=== PATIENT | male | born 1965 | race Caucasian/White ===

== ENCOUNTER 2024-10-31 21:48 | Inpatient (IN) | payer BC ==
[~2024-10-31] VITALS: Ht 172.7 cm; Wt 77.0 kg
[2024-11-01] MEDS ORDERED: TEST75PE9 (00:21)
--- NOTE | 2024-11-01 01:31 | Physician Documentation ---
History of Present Illness ~ Chief Complaint: Wound Stated Complaint: XFER/ARM WOUND Time Seen by MD: 01:18 OK to notify your PCP?: Yes Source: patient Mode of Arrival: EMS Exam Limitations: no limitations HPI BED 14 This patient is a 59 y/o male transferred from [facility] for left arm swelling and infection. 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 He states that while preparing this skull, he soaked it in water, getting his forearm wet in the process. He states that since then he has noticed increasing pain to his left forearm, and yesterday he noticed what he thought looked like a pimple. Patient now complaining of worsening erythema, pain, and swelling. Patient otherwise healthy, stating he takes testosterone, but no other medications. Denies any fevers. Patient underwent I&D at [facility] prior to arrival. No pus was expressed. Wound culture was collected. Patient denies any other associated symptoms at this time. Patient denies any alleviating or exacerbating factors. Tetanus within 5 years: Yes Medication Reconciliation Allergies: Coded Allergies: No Known Allergies (Unverified , 10/31/24) Miscellaneous Medications Testosterone (Testopel), (Reported) Past Medical History Past Medical History: No Pertinent History Past Surgical History: no surgical history, noncontributory Smoking Status: Never smoker Alcohol Use: None Drug Use: none Review of Systems All Other Systems at this time: Reviewed and Negative ROS As stated in the HPI above, otherwise all other systems have been reviewed and negative. Integumentary: Reports: see HPI, wound(s) Physical Exam Vital Signs: RN Vital Signs have been reviewed: Yes, Temperature: 98.5, Heart Rate: 80, Respiratory Rate: 18, BP: 118/87, Pulse Oximetry: 99, Weight: 77.000 Physical Exam General: The patient is well developed, well nourished, nontoxic appearing and is in no acute distress. Skin: Left upper extremity: Patient with approximately 3x4cm violaceous area on volar aspect of the left forearm with subcentimeter opening, draining pink material. Approximately 6cm of underlying fluctuance; no axillary lymphadenopathy. Rest of skin: [place], warm and dry with no rashes. HEENT: Head was normocephalic and atraumatic. Eyes - pupils equal, round, reactive to light and accommodation. Extraocular movements were intact. Conjunctivae were nonicteric. The mouth and oropharynx were clear with moist mucous membranes. There were no pharyngeal exudates or erythema. Neck: Supple and nontender. There was no jugular venous distention, lymph adenopathy, thyromegaly or masses. Chest: Clear to auscultation bilaterally without wheezes, rales or rhonchi. No accessory muscle use. No dullness to percussion. Heart: Rate regular and rhythmic. S1, S2. No murmurs. Palpation of the chest wall was normal. No rubs or thrills. Abdomen: Soft, nontender and nondistended. Positive bowel sounds. No guarding or rebound. No hepatosplenomegaly or palpable masses. Extremities: No cyanosis, clubbing or edema. The patient moves all extremities. Pulses were equal and symmetric. Neurologic: Motor and sensation grossly intact. A & O x4. Psychologic: The patient was oriented to person, place and time. Progress Progress Note 0142: Case discussed with hospitalist who agrees to evaluate patient for admission. Results/Orders Reviewed/noted all lab results: Yes Results/Orders Orders - ROMMEL ENG MD Electrocardiogram (11/01/24 01:20) Culture Blood (11/01/24 01:20) Chest,Single View (11/01/24 01:51) Completed Orders - ROMMEL ENG MD Electrocardiogram (11/01/24 01:20) Cbc/Diff (11/01/24 01:20) MG (11/01/24 01:20) Chest,Single View (11/01/24 01:51) Procalcitonin (11/01/24 01:20) Vancomycin/Ns 1 Gm Add-[place] (Vancomyc (11/01/24 01:20) BMP (11/01/24 01:20) Lacticsepsis (11/01/24 01:20) C-Reactive Protein (11/01/24 01:31) ESR (11/01/24 01:31) Clindamycin 300mg/D5w 50ml (Clindamycin (11/01/24 02:00) Ua W/Microscopic, Cult If Ind (10/31/24 22:08) Hgb A1c (11/01/24 01:30) Medications Received in ER Medications (Trade) Dose Ordered Sig/Kami Route PRN Reason Start Time Stop Time Status Last Admin Dose Admin Vancomycin HCl 250 ml @ 166 mls/hr ONCE ONCE IV 11/01/24 01:20 11/01/24 02:50 DC 11/01/24 02:03 166 MLS/HR Sodium Chloride 1,000 ml @ 100 mls/hr Q10H IV 11/01/24 02:35 11/01/24 03:06 100 MLS/HR Vital Signs 10/31/24 10/31/24 10/31/24 10/31/24 21:59 22:00 23:07 23:30 Temp 98.5 Pulse 66 80 Resp 12 16 16 18 B/P (MAP) 125/90 118/87 (97) Pulse Ox 99 99 11/01/24 01:05 Temp 98.6 Pulse 78 Resp 16 B/P (MAP) 118/82 (94) Pulse Ox 99 Laboratory Tests Test 10/31/24 22:08 11/01/24 01:30 11/01/24 01:39 Urine Specimen Description Non-specified Urine Color Yellow Urine Clarity Clear Urine pH 5.0 Urine Specific [place] 1.010 Urine Protein Negative Urine Glucose (UA) Negative Urine Ketones Negative Urine Occult Blood Trace-intact Urine Nitrite Negative Urine Bilirubin Negative Urine Urobilinogen 0.2 Urine Leukocyte Esterase Negative Urine RBC 0-2 Urine WBC 0-4 Urine Squamous Epithelial Cells Few Urine Bacteria None seen Urine Culture Indicated Not ind Volume Urine Centrifuged 10 ml Urine Comment White Blood Count 10.8 Red Blood Count 4.98 Hemoglobin 15.1 Hematocrit 43.3 Mean Corpuscular Volume 86.9 Mean Corpuscular Hemoglobin 30.3 Mean Corpuscular Hemoglobin Concent 34.9 Red Cell Distribution Width 12.5 Platelet Count 163 Mean Platelet Volume 7.8 Neutrophils (%) (Auto) 83.7 H Lymphocytes (%) (Auto) 8.9 L Monocytes (%) (Auto) 6.7 Eosinophils (%) (Auto) 0.4 Basophils (%) (Auto) 0.3 Neutrophils # (Auto) 9.1 H Lymphocytes # (Auto) 1.0 L Monocytes # (Auto) 0.7 Eosinophils # (Auto) 0.0 Basophils # (Auto) 0.0 CBC Comment Erythrocyte Sedimentation Rate 2 Sodium Level 138 Potassium Level 3.4 L Chloride Level 103 Carbon Dioxide Level 24.6 Anion Gap 10 Blood Urea Nitrogen 12 Creatinine 1.09 Estimated GFR/1.73 m2 69 BUN/Creatinine Ratio 11.0 Glucose Level 147 H Hemoglobin A1c 5.1 Lactic Acid Level 2.0 Calcium Level 7.9 L Magnesium Level 2.0 C-Reactive Protein 3.27 H Albumin 3.1 L Procalcitonin < 0.05 Chemistry Comments Prothrombin Time 10.7 INR International Normalized Ratio 1.0 Activated Partial Thromboplast Time 27 Coagulation Comments Microbiology Date/Time Source Procedure Growth Status 11/01/24 01:39 Blood Hand Right Blood Culture - Preliminary NEGATIVE (LESS THAN 24 HOURS) Resulted Re-Evaluation Re-Evaluation : Re-Evaluation: Improved Progress Patient was seen and examined. Patient is given reassurance. Patient laboratory work was obtained. Urinalysis was within normal limits. Chemistry showed some potassium at 3.4 procalcitonin negative lactic acid 2.0 otherwise negative glucose slightly elevated at 14.7 CBC also within normal limits but slight left shift of 83% sed rate is two. Patient received clindamycin Zosyn and vanco prior to arrival. There was concern for necrotizing fasciitis since the patient had very aggressive infection. Possible as cyanotic organisms were considered. There was no fever. CT scan was obtained there was no gas seen. Patient arrives patient's infection has dramatically decreased. Originally it was almost the entire forearm now decreased to just 10 cm area. Laboratory work above was reassuring. Additional antibiotics was given. Consultation with the infections Disease will be ordered tomorrow. Presented the case with the hospitalist and additional fluids were given. Continuous conveyor monitor interpretation shows normal sinus rhythm heart rate 70s, no ectopy, normal, my Interpretation. Pulse oximetry monitor interpretation shows normal oxygenation 99% room air, nor mal, my interpretation. EKG/XRAY/CT/US/VASC/MRI EKG : Additional Comment 0133: EDMD Dr. Eng interpreted the EKG to show normal sinus rhythm at a rate of 78bpm, good R wave progression, no significant ST changes. QTc of 416. Chest X-Ray : Interpreted By: both Additional Comments [facility] [address], [place], [place] - [address] DIAGNOSTIC RADIOLOGY Patient: SAÚL LANGE Medical Record: [id number] [facility] 1965, Age: 59 Sex: Male Location: ER Patient Status: [facility] ER Service Date/Time: 11/01/24150 Ordering Physician: ROMMEL ENG MD Exam: CHEST,SINGLE VIEW CHEST RADIOGRAPH Indication: SEPSIS Technique: Single frontal view of the chest was obtained COMPARISON: None FINDINGS: Lines and Tubes: None Lungs: Clear Pleura: No effusion. No pneumothorax. Cardiomediastinal contours: Unremarkable Bones: Unremarkable IMPRESSION: 1. No acute disease. Electronically Signed by:AUSTIN WU MD Date & Time: 11/01/24207 Dictated by: AUSTIN WU MD Dictation date and time: 11/01/24147 Primary Care Provider: NO PRIMARY CARE PROVIDER cc: ROMMEL ENG MD ~ EDMD Dr. Eng reviewed imaging and agrees with above findings. Medical Decision Making Additional info obtained from: old records General Diff Dx:Considerations: Include: Abrasion, Contusion, Other Departure Time of Disposition: 01:42 Disposition: 09 ADMITTED INPATIENT Admitted to Inpatient Unit: yes, to hospitalist Admission Level of Care: Med/Surg with Tele Impression: Primary Impression: Cellulitis of left forearm Additional Impression: rule out necrotizing fasciitis Condition: Guarded Referrals: NO PRIMARY CARE PROVIDER (PCP) Education Educated: Patient Educated regarding: diagnosis, need for follow up Critical Care Note Total Time (mins): 30 Critical Care Note The very real possibility of a deterioration of this patient's condition required the highest level of my preparedness for sudden, emergent intervention. I provided critical care services, which included medication orders, frequent reevaluations of the patient's condition and response to treatment, ordering and reviewing test results, and discussing the case with various consultants. Excludes time spent performing separately billable procedures. The critical care time associated with the care of the patient was 30 minutes. Signature Scribe Signature: Scribed for Rommel Eng MD by Sarah Toth 11/01/24 01:45 Attestation: The note accurately reflects work and decisions made by me.Rommel Eng MD 11/01/24 01:31 ROMMEL ENG MD Nov 01, 2024 01:31
[2024-11-01 01:47] LABS: MEAN PLATELET VOLUME 7.8 FL (7.4-10.4); RED CELL DISTRIBUTION WIDTH 12.5 % (11.5-14.5)
[2024-11-01] MEDS ORDERED: clindamycin 300mg/D5W 50mL 50 ML IV SCH (02:00)
[2024-11-01 02:02] LABS: CREATININE 1.09 MG/DL (0.60-1.10); TOTAL CARBON DIOXIDE 24.6 MMOL/L (24-32); eCRCL 71 ML/MIN; eGFR 69 ML/MIN
[2024-11-01 02:02] LABS: LEUKOCYTE ESTERASE ,URINE NEGATIVE (Neg); NITRITES, URINE NEGATIVE (Neg); OCCULT BLOOD,URINE TRACE-INTACT (Neg)
[2024-11-01] MEDS: vancomycin/NS 1 GM ADD-VANTAGE 250 ML IV ONE (02:03)
[2024-11-01 02:04] LABS: UA COLLECTION TYPE NON-SPECIFIED
--- NOTE | 2024-11-01 02:10 | RADIOLOGY REPORT ---
CHEST RADIOGRAPH Indication: SEPSIS Technique: Single frontal view of the chest was obtained COMPARISON: None FINDINGS: Lines and Tubes: None Lungs: Clear Pleura: No effusion. No pneumothorax. Cardiomediastinal contours: Unremarkable Bones: Unremarkable IMPRESSION: 1. No acute disease.
[2024-11-01 02:12] LABS: SQUAMOUS EPITHELIAL CELL,UR FEW /LPF (FEW)
[2024-11-01] MEDS ORDERED: magnesium Cl slow-release 64mg tablet PO PRN (02:35)
[2024-11-01] MEDS ORDERED: magnesium hydroxide 30ml (MOM) UD suspension PO PRN (02:35)
[2024-11-01] MEDS ORDERED: ondansetron/PF 4mg/2ml inj IV PRN (02:35)
[2024-11-01] MEDS ORDERED: potassium Cl 40MEQ/1/2NS 520ml 520 ML IV PRN (02:35)
[2024-11-01] MEDS ORDERED: mag hydrox/Alum hydrox/simeth 30ml oral suspension PO PRN (02:35)
[2024-11-01] MEDS ORDERED: potassium Cl 20 mEq SR tablet PO PRN ×2 (02:35)
[2024-11-01] MEDS ORDERED: magnesium sulf-water 2g/50mL 50 ML IV PRN (02:35)
[2024-11-01] MEDS ORDERED: magnesium sulf-water 4G/100mL 100 ML IV PRN (02:35)
[2024-11-01 02:54] LABS: APTT 27 SECONDS (22-32); INR 1.0 INR
[2024-11-01] MEDS: normal saline 1000ml 1,000 ML IV SCH (03:06)
--- NOTE | 2024-11-01 03:49 | HISTORY AND PHYSICAL-Residence ---
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 The patient stated that he had a laceration on his left forearm which was then soaked by water/blood and other chemical while he was working on cleaning the skull of a long horn bull approximately five days ago. He states that 1st noticed severe pain, swelling and pimple like spot on the left forearm which then progressed rapidly in to tightness of his entire forearm with a increased swelling and warmth in 24 hours. He went to the ER at [facility] where they initially tried incision and drainage but were not successful and there was no pus expressed. He was treated with IV vancomycin, clindamycin and Zosyn and reports that the pain, swelling warmth and redness improved significantly in the past 12 hours prior to his transferred to our hospital. The patient denied any fever, chills, headaches, confusion, nausea or vomiting. He denied any recent weight loss, weight gain, abdominal pain, chest pain, shortness of breaths. He denied any similar kind of wounds in the past. PCP- [facility], Dr. Partida. Code status-full code Allergies: Coded Allergies: No Known Allergies (Unverified , 10/31/24) Home Medications Home Medications Active Reported Testopel (Testosterone) 75 Mg Pellet.ea. 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 Lives at home. Alcohol Use: None Drug Use: None ROS All Other Systems: Reviewed and Negative ROS As stated above in the HPI, otherwise all systems are reviewed and negative. Integumentary: Reports: see HPI, wound(s) Exam Vitals: Vital Signs Date Time Temp Pulse Resp B/P (MAP) Pulse Ox O2 Delivery O2 Flow Rate FiO2 11/01/24 01:05 98.6 78 16 118/82 (94) 99 General: General: Awake and Alert, no acute distress. HEENT: Conjunctiva pink, Sclera clear, Mucus Membranes moist. Neck: Supple without masses and tenderness. Resp: Unlabored. Lungs clear to auscultation bilaterally. Heart: Regular Rate and rhythm, normal S1 and S2 without murmur, rub or gallop. Abdomen: Soft and non tender no organomegaly Extremities: Left forearm has a 2*2 cm wound in the last several aspect which has a increased warmth and redness surrounding it when compared to the right forearm. Skin: Warm and Dry. Neurology: Cranial nerves 2-12 intact. No focal motor or sensory deficits. Diagnostic Data Last Recorded Lab Results: 11/01/2412911/01/24129 Diagnostic Data: Laboratory Tests Test 11/01/24 01:39 Prothrombin Time 10.7 SECONDS (9.0-12.0) INR International Normalized Ratio 1.0 INR Activated Partial Thromboplast Time 27 SECONDS (22-32) Coagulation Comments Advance Care Planning Advanced Care planning: Add on additional 30 min Additional Plan Left forearm cellulitis The patient's WBC count at the outside hospital was 13, has a trended down to 10.8 here. Procalcitonin negative. ESR within normal limits. C-reactive protein elevated-3.27. Started the patient on IV vancomycin and Zosyn. Follow up with the blood cultures. Wound care consultation. The patient had wound cultures done at [facility]. Request results. CT scan of the left upper extremity was done at [facility]. Images were reviewed. Request a CT report from the outside hospital. Consider Infectious Disease consultation in view of the patient's occupation as a taxidermist and exposure to rare pathogens. Follow up with the A1c, lipid panel. Hypokalemia, mild Replace potassium as per the protocol. Continue to monitor electrolytes closely. History of Erectile dysfunction Patient is on testosterone at home. Restart once med reconciliation is done. CODE STATUS: Full code DVT prophylaxis: Heparin subQ 5000 units b.i.d. GI prophylaxis: None Diet: Regular Disposition: Continue medical management. Consider Infectious Disease consultation in the a.m.. Bob Swenson MD Internal Medicine Resident, PGY-3 Date of Service: Nov 01, 2024 Billing Provider: EVGENY BLUM MD,BOB CALDERON, RES Nov 01, 2024 03:49
--- NOTE | 2024-11-01 05:15 | ELECTROCARDIOGRAPH REPORT ---
[facility] Test Date: 2024-11-01 Test Time: 01:33:48 Pat Name: SAÚL IZQUIERDOT Department: EMERGENCY ROOM Patient ID: [id number] Room: ED 14 1 Gender: M Duplicate Maker: MAIN : 1965 Requested By: BEVERLEY HENRIQUEZ Order Number: [id number] Reading MD: Dr. Beverley Henriquez Measurements Intervals [place] Rate: 78 P: 73 NE: 151 QRS: -46 QRSD: 96 T: 70 QT: 365 QTc: 416 Interpretive Statements Sinus rhythm Probable left atrial enlargement LAD, consider left anterior fascicular block Baseline wander in lead(s) II,III,aVL,aVF,V3,V5,V6 Electronically Signed On 11-01-2024 5:40:[address] Beverley Henriquez Please click the below link to view image of tracing.
[2024-11-01] MEDS: piperacillin/tazo 4.5gm/100ml 100 ML IV SCH (07:50)
[2024-11-01] MEDS: K and/or MAG REPLACEMENT MC SCH (08:00)
[2024-11-01] MEDS: docusate sod 100mg capsule PO SCH (08:00)
--- NOTE | 2024-11-01 08:26 | PROGRESS NOTE ---
Clinical Note Clinical Note Progress Note: 59 years old has been admitted earlier this morning for left upper extremity cellulitis. I reviewed the H&P. Examined the patient . Will add vancomycin and requested ID consult from Dr. Villavicencio. SABINO MEJIA MD Nov 01, 2024 08:26
[2024-11-01] MEDS: heparin, porcine 5000 units/ml vial SQ SCH (09:01)
--- NOTE | 2024-11-01 15:12 | Visit Coding Note ---
Date of Service: Nov 01, 2024 Billing Provider: SABINO MEJIA MD Common Visit Codes: NOT BILLABLE SABINO MEJIA MD Nov 01, 2024 15:12
[2024-11-01] MEDS ORDERED: ANAS1TAB24 PO (15:56)
[2024-11-01] MEDS: vancomycin/NS 1 GM ADD-VANTAGE 250 ML IV SCH (16:45)
[2024-11-01 19:20] VITALS: BP 119/80; PULSE 69; RESP 16; TEMP 98; O2SAT 97
[2024-11-01 20:00] VITALS: RESP 16; O2SAT 97
[2024-11-01 22:00] VITALS: BP 123/76; PULSE 64; RESP 18; TEMP 98.2; O2SAT 98
[2024-11-02 05:00] VITALS: BP 107/67; PULSE 54; RESP 18; TEMP 97.8; O2SAT 97
[2024-11-02 05:18] LABS: MEAN PLATELET VOLUME 7.9 FL (7.4-10.4); RED CELL DISTRIBUTION WIDTH 12.4 % (11.5-14.5)
[2024-11-02 05:40] LABS: CHOL/HDL RATIO 2.9 (0.00-4.99); CREATININE 1.13 MG/DL (0.60-1.10); LDL CHOLESTEROL 82 MG/DL (50-100); TOTAL CARBON DIOXIDE 25.4 MMOL/L (24-32); eCRCL 69 ML/MIN; eGFR 67 ML/MIN
[2024-11-02 09:36] VITALS: RESP 18; O2SAT 97
[2024-11-02 10:00] VITALS: BP 109/59; PULSE 70; RESP 18; TEMP 97.1; O2SAT 97
--- NOTE | 2024-11-02 12:04 | CONSULTATION REPORT - RESIDENT ---
Consult Providers to CC Resident Creating Document: ROSALEE GONZALEZ RES History of Present Illness Reason for Admit\Complaint: Cellulitis History of Present Illness 59 years old male transferred from [facility] for evaluation of left elbow skin infection. 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 Approximately 5-6 days ago, he noticed a small papular lesion on the lateral aspect of the left elbow, which has progressively enlarged with associated swelling and erythema. The lesion subsequently developed a small amount of serous drainage. He is uncertain whether this was occupationally related. He has a history of minor abrasions while working. He also recalls a splash of water/detergent onto his upper extremity at work but otherwise denies chemical exposure. He denied fever or chills generalized weakness, light-headedness or any other new symptoms Allergies: Coded Allergies: No Known Allergies (Unverified , 10/31/24) Home Medications Home Medications Active Reported Anastrozole 1 Mg Tablet 1 Tab PO DAILY 30 Days Testopel (Testosterone) 75 Mg Pellet.ea. 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 no change in appetite/weight HEENT: No blurring of the vision, No sore throat, epistaxis, tinnitus Cardiovascular: Yes for chest pain/discomfort, palpitations, no syncope. No pedal edema Respiratory: No sob, cough,, hemoptysis Gastrointestinal: Positive for abdominal pain, no nausea, vomiting. Positive diarrhea, no constipation, melena. Genitourinary: No frquency, urgency, incontinence, nocturia. No dysuria, hematuria Musculoskeletal: No arthralgia, myalgia Endocrine: No polydipsia, polyuria. No heat or cold intolerance Neurologic: No headache, vertigo. No weakness, yes for numbness or tingling of extremities Psychiatric: No hallucinations/delusions, no anhedonia, no suicidal ideation\ Hematologic: No bleeding or bruises Exam Vitals: Vital Signs Date Time Temp Pulse Resp B/P (MAP) Pulse Ox O2 Delivery O2 Flow Rate FiO2 11/02/24 09:36 18 97 Room Air 11/02/24 05:00 97.8 54 107/67 (80) 11/01/24 18:49 0 General: General: Awake and Alert, no acute distress. HEENT: Conjunctiva pink, Sclera clear, Mucus Membranes moist. Neck: Supple without masses and tenderness. Resp: Lungs clear to auscultation bilaterally. Heart: Regular Rate and rhythm, normal S1 and S2 Abdomen: Soft and non tender no organomegaly Extremities: Left elbow: Swelling on the external aspect of forearm close to elbow, about 5-6 cm erythema, there is a small open site with no drainage, No any hemorrhagic bulla noted, mild tenderness Skin: Warm and Dry. Neurological: Speech is clear, alert, and oriented x 4, no gross neurological deficits Diagnostic Data Last Recorded Lab Results: 11/02/24 0503 11/02/24 0503 Diagnostic Data: Laboratory Tests Test 11/01/24 01:39 Prothrombin Time 10.7 SECONDS (9.0-12.0) INR International Normalized Ratio 1.0 INR Activated Partial Thromboplast Time 27 SECONDS (22-32) Coagulation Comments Additional Plan 59 years old male who presented to the ED with left elbow swelling Cellulitis There is no leukocytosis, [facility] WBC reported 13 ESR 2, procalcitonin normal Blood culture negative so far CTA scan in [facility] showed: Subcutaneous edema and scattered area of gas seen along the posterior and medial aspect of elbow without intramuscular or osseous extension by CT criteria Necrotizing fasciitis is less likely based on clinical features and laboratory features. LRINEC score is 0 Patient received vancomycin Zosyn and clindamycin in [facility] and transferred to our facility, patient received one days of vancomycin and Zosyn in our facility. Cellulitis possibly due to MSSA, we will changed the antibiotic to nafcillin 2 g Q eight and monitor him closely Blood culture negative after one day I called [facility] pathalogy department and they reported wound culture still in the process, yesterday was negative We will follow-up with wound culture from [facility] Rosalee Gonzalez MD Internal Medicine Resident Infectious disease team consult Date of Service: Nov 02, 2024 Billing Provider: SHAYY SUAREZ DO Addendum Patient seen and examined with Dr. Gonzalez. Agree with the above assessment and plan. In brief, this is a 59 year old gentleman who was transferred from [facility] for treatment of a forearm infection. He had undergone a bedside I&D prior to arrival around which time his imaging showed gas in the tissues. Today, it has not evolved as Nec Fasc nor are there signs of that on his labs. 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 Will treat as cellulitis with microbiologic ddx Strep > Staph. Will deescalate to IV Ancef today with the intention of further deescalation to orals soon. ROSALEE GONZALEZ, RES Nov 02, 2024 12:04 SHAYY SUAREZ DO Nov 02, 2024 21:30
[2024-11-02] MEDS: VANCOMYCIN LEVEL IV ONE (14:33)
[2024-11-02] MEDS: ceFAZolin 2gm/dext,iso 50mL 50 ML IV SCH (16:13)
--- NOTE | 2024-11-02 16:53 | PROGRESS NOTE ---
Daily Progress Note Providers to CC ~ Objective Vital Signs Date Time Temp Pulse Resp B/P (MAP) Pulse Ox O2 Delivery O2 Flow Rate FiO2 11/02/24 10:00 97.1 70 18 109/59 (76) 97 Room Air 11/01/24 18:49 0 Result Diagram: 11/02/24 0503 11/02/24 0503 Coagulation Studies Laboratory Tests Test 11/01/24 01:39 Prothrombin Time 10.7 SECONDS (9.0-12.0) INR International Normalized Ratio 1.0 INR Activated Partial Thromboplast Time 27 SECONDS (22-32) Coagulation Comments JACKIESABINO Junior MD Nov 02, 2024 16:53
[2024-11-02 18:00] VITALS: BP 111/72; PULSE 59; RESP 16; TEMP 98.1; O2SAT 98
[2024-11-02 20:00] VITALS: RESP 16; O2SAT 98
[2024-11-02 22:00] VITALS: BP 114/71; PULSE 54; RESP 16; TEMP 97.7; O2SAT 98
[2024-11-03 04:53] LABS: MEAN PLATELET VOLUME 8.0 FL (7.4-10.4); RED CELL DISTRIBUTION WIDTH 12.6 % (11.5-14.5)
[2024-11-03 05:33] LABS: CREATININE 1.05 MG/DL (0.60-1.10); TOTAL CARBON DIOXIDE 26.5 MMOL/L (24-32); eCRCL 74 ML/MIN; eGFR 73 ML/MIN
[2024-11-03 06:00] VITALS: BP 113/72; PULSE 50; RESP 16; TEMP 97.5; O2SAT 97
[2024-11-03 08:00] VITALS: RESP 16; O2SAT 97
[2024-11-03 08:41] VITALS: RESP 16; O2SAT 97
[2024-11-03 10:15] VITALS: BP 111/68; PULSE 75; RESP 14; TEMP 98.2; O2SAT 98
--- NOTE | 2024-11-03 12:50 | PROGRESS NOTE- Residence ---
Progress Note - Resident Providers to CC Resident Creating Document: ROSALEE GONZALEZ RES ~ Antibiotic Timeout Antibiotic Ordered?: Yes Subjective Patient seen and examined at the bedside, denied upper extremity pain fever or chills. Objective Vital Signs Date Time Temp Pulse Resp B/P (MAP) Pulse Ox O2 Delivery O2 Flow Rate FiO2 11/03/24 10:15 98.2 75 14 11/03/24 10:15 111/68 (82) 98 11/03/24 08:41 Room Air 11/01/24 18:49 0 Result Diagram: 11/03/2443111/03/24431 General: Awake and Alert, no acute distress. HEENT: Conjunctiva pink, Sclera clear, Mucus Membranes moist. Neck: Supple without masses and tenderness. Resp: Lungs clear to auscultation bilaterally. Heart: Regular Rate and rhythm, normal S1 and S2 Abdomen: Soft and non tender no organomegaly Extremities: Left elbow: Significantly decreased Swelling on the external aspect of forearm close to elbow, about 5-6 cm erythema which has been improving, no drainage, No any hemorrhagic bulla noted, mild tenderness Skin: Warm and Dry. Neurological: Speech is clear, alert, and oriented x 4, no gross neurological deficits Coagulation Studies Laboratory Tests Test 11/01/24 01:39 Prothrombin Time 10.7 SECONDS (9.0-12.0) INR International Normalized Ratio 1.0 INR Activated Partial Thromboplast Time 27 SECONDS (22-32) Coagulation Comments Plan Plan 59 years old male who presented to the ED with left elbow swelling Cellulitis There is no leukocytosis, [facility] WBC reported 13 ESR 2, procalcitonin normal Blood culture negative after two days CTA scan in [facility] showed: Subcutaneous edema and scattered area of gas seen along the posterior and medial aspect of elbow without intramuscular or osseous extension by CT criteria Necrotizing fasciitis is less likely based on clinical features and laboratory features. LRINEC score is 0 Patient received vancomycin Zosyn and clindamycin in [facility] and transferred to our facility, patient received one days of vancomycin and Zosyn in our facility. Cellulitis possibly due to MSSA, we changed the antibiotic to cefazolin 2 g Q 8h [place] [facility] no gross on wound culture Patient can discharge with p.o. antibiotic cephalexin for one more week Rosalee Gonzalez MD Internal Medicine Resident Infectious disease progress note Date of Service: Nov 03, 2024 Billing Provider: SHAYY SUAREZ DO Addendum Patient seen and examined with Dr. Gonzalez. Agree with the above assessment and plan. Patient's arm has shown significant improvement - he will be discharged home on another week of Keflex ROSALEE GONZALEZ, RES Nov 03, 2024 12:50 SHAYY SUAREZ DO Nov 03, 2024 21:36
[2024-11-03] MEDS ORDERED: CEPH-585 PO (14:36)
== END 2024-11-03 16:06 | disposition home or self-care (01) | DRG 603 ==
LOC: ER 21:49 → ED HOLD 11-01 02:35 → SUR 3N 11-01 19:20
PROVIDERS: ADMIT Internal Medicine Sleep Medicine; ATTEND Internal Medicine
DX: L03.114 Cellulitis of left upper limb (principal); E87.6 Hypokalemia; Z79.899 Other long term (current) drug therapy
CPT/HCPCS: 36415; 71045; 80048; 80053; 80061; 80202; 81001; 83036; 83605; 83735; 84132; 84145; 85025; 85610; 85651; 85730; 86140; 87040; 87081; 93005; 96365; 96367; 99291; A6196; A6258; A6446; A6449; G0378; J0690; J1644; J2543; J3373; J7030